=== PATIENT | female | born 1965 | race Caucasian/White ===

== ENCOUNTER 2020-11-30 10:20 | Emergency (ER) | payer OTHER ==
[2020-11-30 10:43] VITALS: BMI 46.4
[2020-11-30 11:45] LABS: HEMATOCRIT 39.7 % (32.4-45.2); MCH 28.8 pg (25.7-33.7); MCHC 32.9 g/dl (32.0-36.0); MEAN CELL VOLUME 87.6 fl (80-96); MEAN PLT VOLUME 8.7 fl (7.5-11.1); PLATELET COUNT 239 K/MM3 (134-434); RBC 4.53 M/mm3 (3.60-5.2); RDW 14.2 % (11.6-15.6); WHITE BLOOD COUNT 4.7 K/mm3 (4.0-10.0)
[2020-11-30] MEDS ORDERED: BAMLANIVIMAB 700 MG in SODIUM CHLORIDE 250 ML IVPB ONE (12:00)
[2020-11-30 12:16] LABS: POTASSIUM 4.6 mmol/L (3.5-5.1)
[2020-11-30 12:18] LABS: BLOOD UREA NITROGEN 13.7 mg/dL (7-18); CALCIUM 8.7 mg/dL (8.5-10.1)
[2020-11-30 12:22] LABS: CREATININE 0.7 mg/dL (0.55-1.3)
[2020-11-30 14:59] VITALS: BP 139/83; PULSE 67; TEMP 98.3
== END 2020-11-30 15:17 | disposition home or self-care (01) ==
LOC: JER 10:20
DX: U07.1 COVID-19 (principal)
CPT/HCPCS: 36415; 71046-TC-FY; 80048; 85027; 99284-25; M0239; Q0239

== ENCOUNTER 2023-09-02 04:12 | Day surgery (SDC) | payer OTHER ==
[2023-08-29 10:11] VITALS: BMI 45.1
[2023-09-02] MEDS ORDERED: HEPARIN NA (PORCINE) 5,000 UNITS/ML 1ML VIAL ONE (06:53)
[2023-09-02] MEDS ORDERED: ACETAMINOPHEN INJECTION 100 ML IVPB ONE (06:57)
[2023-09-02] MEDS ORDERED: PHENAZOPYRIDINE HCL 100 MG TABLET (FP) ONE (06:57)
[2023-09-02] MEDS ORDERED: ceFAZolin SODIUM 1 GM VIAL ONE ×2 (06:57→07:22)
[2023-09-02] MEDS ORDERED: LIDOCAINE HCL/PF 2% SDV 5ML VIAL ONE (07:22)
[2023-09-02] MEDS ORDERED: SODIUM CHLORIDE 0.9% P/F 10 ML VIAL IJ ONE (07:22)
[2023-09-02] MEDS ORDERED: ONDANSETRON 4 MG/2 ML VIAL ONE (07:22)
[2023-09-02] MEDS ORDERED: METOCLOPRAMIDE HCL INJECTION 10 MG/2 ML VIAL ONE (07:22)
[2023-09-02] MEDS ORDERED: DEXAMETHASONE SOD PHOSPHATE 4 MG/1 ML VIAL ONE (07:22)
[2023-09-02] MEDS ORDERED: ROCURONIUM BROMIDE 50 MG/5 ML SYRINGE ONE ×2 (07:25→08:48)
[2023-09-02] MEDS ORDERED: MIDAZOLAM HCL 2 MG/2 ML SINGLE DOSE VIAL ONE (07:46)
[2023-09-02] MEDS ORDERED: PROPOFOL 40 ML ONE (07:47)
[2023-09-02] MEDS ORDERED: ceFAZolin SODIUM 1 GM VIAL IVPB ONE (08:20)
[2023-09-02] MEDS ORDERED: TRANEXAMIC ACID 1000 MG/10 ML VIAL ONE (08:25)
[2023-09-02] MEDS ORDERED: HYDROmorphone HCl 2 MG/ML VIAL ONE (08:49)
[2023-09-02] MEDS ORDERED: SUGAMMADEX SODIUM 200 MG/2 ML VIAL ONE (09:29)
[2023-09-02] MEDS ORDERED: ONDANSETRON 4 MG/2 ML VIAL IVPUSH PRN (10:14)
[2023-09-02] MEDS ORDERED: BISACODYL 5 MG TABLET.DR (FP) PO PRN (10:14)
[2023-09-02] MEDS ORDERED: DOCUSATE SODIUM 100 MG CAPSULE (FP) PO PRN (10:14)
[2023-09-02] MEDS ORDERED: SIMETHICONE 80 MG TAB.CHEW (FP) PO PRN (10:14)
[2023-09-02] MEDS ORDERED: ACETAMINOPHEN 1000 MG/100 ML BAG IVPB ONE (10:39)
[2023-09-02] MEDS ORDERED: CEFAZOLIN 2 GM in DEXTROSE 5%-WATER - 100 ML IVPB ONE (10:39)
[2023-09-02] MEDS ORDERED: PHENAZOPYRIDINE HCL 100 MG TABLET (FP) PO ONE (10:39)
[2023-09-02] MEDS: LACTATED RINGERS SOLUTION 1,000 ML IV SCH ×2 (12:00→22:48)
[2023-09-02 15:40] LABS: HEMATOCRIT 41.2 % (32.4-45.2); HEMOGLOBIN 13.4 GM/dL (10.7-15.3); MCH 28.2 pg (25.7-33.7); MCHC 32.5 g/dl (32.0-36.0); MEAN CELL VOLUME 86.6 fl (80-96); MEAN PLT VOLUME 7.6 fl (7.5-11.1); PLATELET COUNT 282 10^3/uL (134-434); RBC 4.75 M/mm3 (3.60-5.2); RDW 13.9 % (11.6-15.6); WHITE BLOOD COUNT 14.9 K/mm3 (4.0-10.0)
[2023-09-02] MEDS ORDERED: IBUPROFEN 800 MG/8 ML IJ IVPB PRN (16:00)
[2023-09-02 16:33] LABS: POTASSIUM 4.8 mmol/L (3.5-5.1)
[2023-09-02 16:40] LABS: BLOOD UREA NITROGEN 14.6 mg/dL (7-18)
[2023-09-02 16:42] LABS: CREATININE 0.7 mg/dL (0.55-1.3)
[2023-09-02] MEDS: ACETAMINOPHEN 1000 MG/100 ML BAG IVPB SCH ×2 (16:43→18:22)
[2023-09-02] MEDS: CEFAZOLIN 1 GM in DEXTROSE 5%-WATER - 50 ML IVPB SCH ×2 (17:00→23:53)
[2023-09-02] MEDS ORDERED: ATORVASTATIN CA 40 MG TABLET (FP) PO SCH (22:00)
[2023-09-03] MEDS: ACETAMINOPHEN 1000 MG/100 ML BAG IVPB SCH ×2 (01:09→06:42)
[2023-09-03 01:51] VITALS: RESP 18
[2023-09-03] MEDS ORDERED: oxyCODONE HCL 5 MG TABLET PO PRN ×2 (08:00)
[2023-09-03 08:07] LABS: MCH 28.8 pg (25.7-33.7); MCHC 33.3 g/dl (32.0-36.0); MEAN CELL VOLUME 86.6 fl (80-96); MEAN PLT VOLUME 7.6 fl (7.5-11.1); PLATELET COUNT 287 10^3/uL (134-434); RDW 14.1 % (11.6-15.6); WHITE BLOOD COUNT 14.6 K/mm3 (4.0-10.0)
[2023-09-03 08:30] LABS: POTASSIUM 4.4 mmol/L (3.5-5.1)
[2023-09-03 08:32] LABS: CALCIUM 9.8 mg/dL (8.5-10.1)
[2023-09-03 08:33] LABS: BLOOD UREA NITROGEN 12.8 mg/dL (7-18)
[2023-09-03 08:36] LABS: CREATININE 0.6 mg/dL (0.55-1.3)
[2023-09-03 09:44] VITALS: BP 109/70; PULSE 66; TEMP 97.8
[2023-09-03] MEDS ORDERED: ENOXAPARIN NA (PORCINE) 40 MG/0.4 ML DISP.SYRIN SQ SCH (10:00)
== END 2023-09-03 13:00 | disposition home or self-care (01) ==
LOC: JASUSAT 04:12 → J3W 12:40 → JASUSAT 09-03 13:00
PROVIDERS: ATTEND Obstetrics & Gynecology
PROC: 0UT7FZZ Resection of Bilateral Fallopian Tubes, Via Natural or Artificial Opening With Percutaneous Endoscopic Assistance (ICD-10-PCS; 2023-09-02)
PROC: 8E0W4CZ Robotic Assisted Procedure of Trunk Region, Percutaneous Endoscopic Approach (ICD-10-PCS; 2023-09-02)
PROC: 0UT9FZZ Resection of Uterus, Via Natural or Artificial Opening With Percutaneous Endoscopic Assistance (ICD-10-PCS; principal; 2023-09-02 07:30)
PROC: 0UT2FZZ Resection of Bilateral Ovaries, Via Natural or Artificial Opening With Percutaneous Endoscopic Assistance (ICD-10-PCS; 2023-09-02 07:30)
DX: C56.2 Malignant neoplasm of left ovary (principal); D25.1 Intramural leiomyoma of uterus; N84.0 Polyp of corpus uteri; N83.8 Other noninflammatory disorders of ovary, fallopian tube and broad ligament
CPT/HCPCS: 58552; S2900; 36415; 80048; 82962; 85027; 86850; 86870; 86880; 86900; 86901; 86902; 88305-TC; 88307-TC; 88309-TC; 88341-TC; 88342-TC; 94010; 94760; J1644

== ENCOUNTER 2024-12-19 07:56 | Inpatient (IN) | payer OTHER ==
[2024-12-19 09:21] LABS: URINE APPEARANCE CLEAR; URINE BILIRUBIN NEGATIVE (NEGATIVE); URINE COLOR YELLOW; URINE GLUCOSE (UA) NEGATIVE (NEGATIVE); URINE KETONE NEGATIVE (NEGATIVE); URINE LEUK ESTERASE NEGATIVE (NEGATIVE); URINE NITRITE NEGATIVE (NEGATIVE); URINE PROTEIN NEGATIVE (NEGATIVE); URINE UROBILINOGEN 0.2 mg/dL (0.2-1.0)
[2024-12-19] MEDS ORDERED: KETOROLAC TROMETHAMINE 15 MG/ML VIAL ONE (09:26)
[2024-12-19 09:30] LABS: ABSOLUTE IMMATURE GRANULOCYTES 0.16 x10^3/uL (0.0-0.031); BASOPHILS # 0.04 x10^3/uL (0.01-0.08); EOSINOPHIL % 0.1 % (0.7-5.8); EOSINOPHILS # 0.01 x10^3/uL (0.04-0.36); HEMATOCRIT 42.6 % (34.1-44.9); HEMOGLOBIN 13.3 g/dL (11.2-15.7); MCHC 31.2 g/dl (32.2-35.5); MEAN CELL VOLUME 89.1 fl (79.4-94.8); MEAN PLT VOLUME 9.1 fl (9.4-12.3); MONOCYTE # 1.29 x10^3/uL (0.24-0.86); MONOCYTE % 7.1 % (4.7-12.5); PLATELET COUNT 217 x10^3/uL (182-369); RDW 13.5 % (12.4-16.4)
[2024-12-19] MEDS: SODIUM CHLORIDE 0.9% 500 ML INFUS.BAG IV ONE (09:35)
[2024-12-19] MEDS: KETOROLAC TROMETHAMINE 15 MG/ML VIAL IM ONE (09:35)
[2024-12-19] MEDS: KETOROLAC TROMETHAMINE 15 MG/ML VIAL IVPUSH ONE (09:36)
[2024-12-19 09:38] LABS: INR 1.4 (0.83-1.09); PROTHROMBIN TIME (PATIENT) 15.4 SEC (9.7-13.0)
[2024-12-19 09:41] LABS: ACTIVATED PTT 27.4 SECONDS (25.2-36.5)
[2024-12-19 09:51] LABS: POTASSIUM 4.5 mmol/L (3.5-5.1)
[2024-12-19 09:54] LABS: ALBUMIN 3.5 g/dl (3.4-5.0); CALCIUM 8.7 mg/dL (8.5-10.1)
[2024-12-19 09:55] LABS: BLOOD UREA NITROGEN 11.3 mg/dL (7-18)
[2024-12-19 09:58] LABS: CREATININE 0.8 mg/dL (0.55-1.3)
[2024-12-19 09:59] LABS: BILIRUBIN,TOTAL 1.7 mg/dL (0.2-1)
[2024-12-19] MEDS ORDERED: CEFTRIAXONE 1 G/50 ML PREMIX 50 ML IVPB ONE (16:43)
[2024-12-19] MEDS ORDERED: PIPERACILLIN/TAZOB 4.5 GM 4.5 GM/100 ML BAG IVPB ONE (16:43)
[2024-12-19] MEDS: PIPERACILLIN/TAZOB 4.5 GM 4.5 GM in DEXTROSE 5%-WATER 100 ML IVPB ONE (16:50)
[2024-12-19] MEDS: CEFTRIAXONE 1 GM in DEXTROSE 5%-WATER - 100 ML IVPB ONE (17:14)
[2024-12-19] MEDS ORDERED: ACETAMINOPHEN 1000 MG/100 ML BAG IVPB ONE (20:34)
[2024-12-19] MEDS ORDERED: DOCUSATE SODIUM 100 MG CAPSULE (FP) PO PRN (20:34)
[2024-12-19 20:40] VITALS: BMI 43.4
[2024-12-19] MEDS: ATORVASTATIN CA 40 MG TABLET (FP) PO SCH (21:38)
[2024-12-19] MEDS: ACETAMINOPHEN 500 MG TABLET (FP) PO ONE (21:38)
[2024-12-20] MEDS: PIPERACILLIN/TAZOB 3.375 GM 50 ML IVPB SCH (02:59)
[2024-12-20] MEDS: ACETAMINOPHEN 1000 MG/100 ML BAG IVPB PRN (06:47)
[2024-12-20] MEDS ORDERED: KETOROLAC TROMETHAMINE 15 MG/ML VIAL IM PRN (08:45)
[2024-12-20 08:55] LABS: HEMOGLOBIN 12.8 g/dL (11.2-15.7); MCHC 32.8 g/dl (32.2-35.5); MEAN CELL VOLUME 86.5 fl (79.4-94.8); MEAN PLT VOLUME 9.6 fl (9.4-12.3); PLATELET COUNT 215 x10^3/uL (182-369); RDW 13.6 % (12.4-16.4)
[2024-12-20 09:21] LABS: POTASSIUM 3.7 mmol/L (3.5-5.1)
[2024-12-20 09:27] LABS: CALCIUM 8.7 mg/dL (8.5-10.1)
[2024-12-20 09:28] LABS: ALBUMIN 3.2 g/dl (3.4-5.0); BLOOD UREA NITROGEN 10.5 mg/dL (7-18); MAGNESIUM 2.1 mg/dL (1.8-2.4)
[2024-12-20 09:31] LABS: CREATININE 0.8 mg/dL (0.55-1.3); PHOSPHOROUS 2.8 mg/dL (2.5-4.9)
[2024-12-20 09:33] LABS: TOT PROT 6.6 g/dl (6.4-8.2)
[2024-12-20] MEDS: KETOROLAC TROMETHAMINE 15 MG/ML VIAL IVPUSH PRN (09:39)
[2024-12-20] MEDS: CYANOCOBALAMIN 1,000 MCG TABLET (FP) PO SCH (09:41)
[2024-12-20] MEDS: ENOXAPARIN NA (PORCINE) 40 MG/0.4 ML DISP.SYRIN SQ SCH (09:41)
[2024-12-20] MEDS: PIPERACILLIN/TAZOB 3.375 GM 3.375 GM in DEXTROSE 5%-WATER - 50 ML IVPB SCH (15:41)
[2024-12-20] MEDS: PIPERACILLIN/TAZOB 4.5 GM 4.5 GM/100 ML BAG IVPB SCH (18:37)
[2024-12-21 09:31] LABS: HEMATOCRIT 36.2 % (34.1-44.9); HEMOGLOBIN 11.8 g/dL (11.2-15.7); MCHC 32.6 g/dl (32.2-35.5); MEAN CELL VOLUME 86.8 fl (79.4-94.8); PLATELET COUNT 221 x10^3/uL (182-369); RDW 13.9 % (12.4-16.4)
[2024-12-21 09:56] LABS: POTASSIUM 3.8 mmol/L (3.5-5.1)
[2024-12-21 10:09] LABS: CALCIUM 8.5 mg/dL (8.5-10.1)
[2024-12-21 10:10] LABS: BLOOD UREA NITROGEN 12.8 mg/dL (7-18); MAGNESIUM 2.1 mg/dL (1.8-2.4)
[2024-12-21 10:12] LABS: BILIRUBIN,DIRECT 1.5 mg/dL (0.0-0.2)
[2024-12-21 10:13] LABS: CREATININE 0.8 mg/dL (0.55-1.3)
[2024-12-21 10:14] LABS: BILIRUBIN,TOTAL 2.4 mg/dL (0.2-1); TOT PROT 6.4 g/dl (6.4-8.2)
[2024-12-21] MEDS: SODIUM CHLORIDE 1,000 ML IV SCH (12:23)
[2024-12-21] MEDS ORDERED: ACETAMINOPHEN 500 MG TABLET (FP) PO PRN (13:43)
[2024-12-21] MEDS ORDERED: KETOROLAC TROMETHAMINE 15 MG/ML VIAL IVPUSH PRN (13:46)
[2024-12-21] MEDS: IBUPROFEN 600 MG TABLET (FP) PO ONE (14:14)
[2024-12-22 08:32] LABS: HEMATOCRIT 35.8 % (34.1-44.9); HEMOGLOBIN 11.5 g/dL (11.2-15.7); MCHC 32.1 g/dl (32.2-35.5); MEAN CELL VOLUME 87.1 fl (79.4-94.8); MEAN PLT VOLUME 9.7 fl (9.4-12.3); PLATELET COUNT 263 x10^3/uL (182-369); RDW 13.8 % (12.4-16.4)
[2024-12-22 08:59] LABS: POTASSIUM 3.6 mmol/L (3.5-5.1)
[2024-12-22 09:09] LABS: CALCIUM 8.5 mg/dL (8.5-10.1)
[2024-12-22 09:10] LABS: ALBUMIN 2.7 g/dl (3.4-5.0); BLOOD UREA NITROGEN 8.8 mg/dL (7-18); CREATININE 0.7 mg/dL (0.55-1.3); MAGNESIUM 2.2 mg/dL (1.8-2.4)
[2024-12-22 09:12] LABS: BILIRUBIN,TOTAL 3.1 mg/dL (0.2-1); TOT PROT 6.5 g/dl (6.4-8.2)
[2024-12-23 09:03] LABS: ABSOLUTE IMMATURE GRANULOCYTES 0.11 x10^3/uL (0.0-0.031); BASOPHILS # 0.03 x10^3/uL (0.01-0.08); EOSINOPHIL % 0.6 % (0.7-5.8); EOSINOPHILS # 0.08 x10^3/uL (0.04-0.36); HEMATOCRIT 34.8 % (34.1-44.9); HEMOGLOBIN 11.5 g/dL (11.2-15.7); MEAN CELL VOLUME 85.9 fl (79.4-94.8); MEAN PLT VOLUME 9.4 fl (9.4-12.3); MONOCYTE # 0.67 x10^3/uL (0.24-0.86); PLATELET COUNT 283 x10^3/uL (182-369)
[2024-12-23 09:25] LABS: POTASSIUM 3.3 mmol/L (3.5-5.1)
[2024-12-23 09:27] LABS: CALCIUM 8.2 mg/dL (8.5-10.1)
[2024-12-23 09:28] LABS: ALBUMIN 2.6 g/dl (3.4-5.0); BLOOD UREA NITROGEN 6.4 mg/dL (7-18)
[2024-12-23 09:31] LABS: CREATININE 0.7 mg/dL (0.55-1.3)
[2024-12-23 09:32] LABS: BILIRUBIN,TOTAL 1.8 mg/dL (0.2-1); TOT PROT 6.1 g/dl (6.4-8.2)
[2024-12-23] MEDS: POTASSIUM CHLORIDE ORAL LIQUID 20 MEQ/15 ML PO ONE (11:54)
[2024-12-24 09:31] LABS: ABSOLUTE IMMATURE GRANULOCYTES 0.08 x10^3/uL (0.0-0.031); BASOPHILS # 0.03 x10^3/uL (0.01-0.08); EOSINOPHIL % 0.8 % (0.7-5.8); HEMATOCRIT 35.7 % (34.1-44.9); HEMOGLOBIN 11.6 g/dL (11.2-15.7); MCHC 32.5 g/dl (32.2-35.5); MEAN CELL VOLUME 86.2 fl (79.4-94.8); MEAN PLT VOLUME 9.1 fl (9.4-12.3); MONOCYTE % 5.9 % (4.7-12.5); PLATELET COUNT 323 x10^3/uL (182-369); RDW 14.1 % (12.4-16.4)
[2024-12-24 09:56] LABS: POTASSIUM 3.8 mmol/L (3.5-5.1)
[2024-12-24 09:59] LABS: ALBUMIN 2.6 g/dl (3.4-5.0); CALCIUM 8.7 mg/dL (8.5-10.1)
[2024-12-24 10:00] LABS: BLOOD UREA NITROGEN 6.2 mg/dL (7-18)
[2024-12-24 10:02] LABS: CREATININE 0.7 mg/dL (0.55-1.3)
[2024-12-24 10:04] LABS: BILIRUBIN,TOTAL 1.6 mg/dL (0.2-1); TOT PROT 6.4 g/dl (6.4-8.2)
[2024-12-25 06:08] VITALS: RESP 18
[2024-12-25 09:05] LABS: ABSOLUTE IMMATURE GRANULOCYTES 0.11 x10^3/uL (0.0-0.031); BASOPHILS # 0.04 x10^3/uL (0.01-0.08); EOSINOPHIL % 1.2 % (0.7-5.8); EOSINOPHILS # 0.17 x10^3/uL (0.04-0.36); HEMOGLOBIN 11.2 g/dL (11.2-15.7); MEAN CELL VOLUME 87.5 fl (79.4-94.8); MEAN PLT VOLUME 9.1 fl (9.4-12.3); MONOCYTE # 0.93 x10^3/uL (0.24-0.86); MONOCYTE % 6.8 % (4.7-12.5); PLATELET COUNT 349 x10^3/uL (182-369); RDW 14.3 % (12.4-16.4)
[2024-12-25 09:45] LABS: POTASSIUM 3.8 mmol/L (3.5-5.1)
[2024-12-25 10:11] LABS: CREATININE 0.6 mg/dL (0.55-1.3)
[2024-12-25 10:12] LABS: BILIRUBIN,TOTAL 1.7 mg/dL (0.2-1); BLOOD UREA NITROGEN 6.2 mg/dL (7-18); CALCIUM 8.7 mg/dL (8.5-10.1)
[2024-12-25 10:13] LABS: ALBUMIN 2.5 g/dl (3.4-5.0); MAGNESIUM 1.7 mg/dL (1.8-2.4)
[2024-12-25] MEDS: MAGNESIUM OXIDE 400 MG TABLET (FP) PO ONE (10:56)
[2024-12-26] MEDS: MELATONIN 5 MG TABLETS PO PRN (02:12)
[2024-12-26] MEDS: IBUPROFEN 400 MG TABLET (FP) PO ONE (02:12)
[2024-12-26 06:03] VITALS: BP 119/83; PULSE 76; TEMP 97.9
[2024-12-26 08:56] LABS: ABSOLUTE IMMATURE GRANULOCYTES 0.12 x10^3/uL (0.0-0.031); BASOPHILS # 0.04 x10^3/uL (0.01-0.08); EOSINOPHIL % 1.5 % (0.7-5.8); EOSINOPHILS # 0.19 x10^3/uL (0.04-0.36); HEMATOCRIT 37.1 % (34.1-44.9); HEMOGLOBIN 11.9 g/dL (11.2-15.7); MCHC 32.1 g/dl (32.2-35.5); MEAN CELL VOLUME 87.3 fl (79.4-94.8); MEAN PLT VOLUME 8.9 fl (9.4-12.3); MONOCYTE # 0.66 x10^3/uL (0.24-0.86); MONOCYTE % 5.1 % (4.7-12.5); PLATELET COUNT 424 x10^3/uL (182-369); RDW 14.5 % (12.4-16.4)
[2024-12-26 09:15] LABS: POTASSIUM 4.3 mmol/L (3.5-5.1)
[2024-12-26 09:19] LABS: ALBUMIN 2.7 g/dl (3.4-5.0); BLOOD UREA NITROGEN 9.4 mg/dL (7-18); CALCIUM 9.1 mg/dL (8.5-10.1); MAGNESIUM 2.3 mg/dL (1.8-2.4)
[2024-12-26 09:23] LABS: CREATININE 0.7 mg/dL (0.55-1.3)
[2024-12-26 09:24] LABS: BILIRUBIN,TOTAL 1.5 mg/dL (0.2-1); TOT PROT 6.7 g/dl (6.4-8.2)
== END 2024-12-26 13:55 | disposition home or self-care (01) | DRG 720 ==
LOC: JER 07:56 → JERBED 16:47 → J8W 19:24
PROVIDERS: ADMIT Student in an Organized Health Care Education/Training Program; ATTEND Internal Medicine
DX: A41.9 Sepsis, unspecified organism (principal); C56.2 Malignant neoplasm of left ovary; E78.5 Hyperlipidemia, unspecified; L02.91 Cutaneous abscess, unspecified; N70.93 Salpingitis and oophoritis, unspecified; Z68.41 Body mass index [BMI] 40.0-44.9, adult; E66.01 Morbid (severe) obesity due to excess calories; R19.8 Other specified symptoms and signs involving the digestive system and abdomen; R73.03 Prediabetes
CPT/HCPCS: 36415; 72197-TC; 74177-TC; 80053; 81003; 82248; 82962; 83036; 83605; 83615; 83690; 83735; 84100; 85025; 85610; 85730; 86140; 86304; 86850; 86900; 86901; 87040; 87086; 87186; 99285-25; J0131